=== PATIENT | female | born 1940 | race Caucasian/White ===

== ENCOUNTER → 2018-07-21 | Outpatient (CLI) | payer MEDICARE, OTHER ==
--- NOTE | 2018-07-28 14:52 | RAD ---
DATE: July 21, 2018 EXAM: DIGITAL SCREEN BILAT W/CAD HISTORY: Screening study. COMPARISON: 2015 and 2017 This study was interpreted with the benefit of Computerized Aided Detection (CAD). FINDINGS: Breast Density: FATTY The breast parenchyma is primarily fatty replaced. Breast parenchyma level density A.. There are no dominant suspicious masses, suspicious microcalcifications or evidence of architectural distortion. IMPRESSION: No mammographic indicators for malignancy. BI-RADS CATEGORY: 1 NEGATIVE RECOMMENDED FOLLOW-UP: 12M 12 MONTH FOLLOW-UP PQRS compliance statement: Patient information was entered into a reminder system with a target due date July 22, 2019 for the next mammogram. Mammography is a sensitive method for finding small breast cancers, but it does not detect them all and is not a substitute for careful clinical examination. A negative mammogram does not negate a clinically suspicious finding and should not result in delay in biopsying a clinically suspicious abnormality. "Our facility is accredited by the [employer] Mamm[employer]." The patient's breast density may affect the ability of mammography to detect breast cancer. There are 4 categories of breast density, A, B, C and D. Breast density A means that most of the breast tissue is replaced with adipose tissue and therefore is not dense. Breast density B means that the breast tissue is mildly dense and scattered. Breast density C means that the breast tissue is heterogeneously dense. Breast density D means that the breast tissue is very dense. Breast densities especially C and D may decrease the sensitivity of mammography to detect breast cancer. Therefore, the patient may benefit from 3-D breast mammography (3D breast tomography) as a part of their screening mammogram. Insurance may or may not pay for this additional imaging. The patient's breast density based on today's mammogram is category A.
== END | disposition home or self-care (01) ==
LOC: MAMMO 10:14
PROVIDERS: ATTEND Family Medicine
DX: Z12.31 Encounter for screening mammogram for malignant neoplasm of breast (principal)
CPT/HCPCS: 77067

== ENCOUNTER → 2019-08-02 | Outpatient (CLI) | payer MEDICARE, OTHER ==
--- NOTE | 2019-08-02 15:21 | RAD ---
DATE: 08/02/2019. EXAM: MAMMO ASHLEY SCREENING BILATERAL. HISTORY: Routine mammographic screening. COMPARISON: 07/21/2018. This study was interpreted with the benefit of Computerized Aided Detection (CAD). FINDINGS: Breast Density: FATTY The breast parenchyma is primarily fatty replaced. Breast parenchyma level density A.. A nodule superolaterally on the right has stable correlates with very levels of inclusion on prior studies. Small nodules elsewhere are stable. Coarse calcifications are benign. There are no suspicious masses, microcalcifications or architectural distortion. A pacemaker is noted on the left. BI-RADS CATEGORY: 2 BENIGN FINDING(S). RECOMMENDED FOLLOW-UP: 12M 12 MONTH FOLLOW-UP. PQRS compliance statement: Patient information was entered into a reminder system with a target due date 08/02/2020 for the next mammogram. Mammography is a sensitive method for finding small breast cancers, but it does not detect them all and is not a substitute for careful clinical examination. A negative mammogram does not negate a clinically suspicious finding and should not result in delay in biopsying a clinically suspicious abnormality. "Our facility is accredited by the [employer] Mammography [employer]."
== END | disposition home or self-care (01) ==
LOC: MAMMO 09:10
PROVIDERS: ATTEND Family Medicine
DX: Z12.31 Encounter for screening mammogram for malignant neoplasm of breast (principal); N63.10 Unspecified lump in the right breast, unspecified quadrant; N64.89 Other specified disorders of breast; Z95.0 Presence of cardiac pacemaker
CPT/HCPCS: 77063; 77067

== ENCOUNTER → 2020-08-16 | Outpatient (CLI) | payer MEDICARE, OTHER ==
--- NOTE | 2020-08-16 11:04 | RAD ---
EXAM: Bilateral digital screening mammogram with tomosynthesis. HISTORY: 79-year-old female presents for screening mammography. TECHNIQUE: Full-field digital craniocaudal and mediolateral oblique 2D and 3D tomosynthesis images of both breasts are obtained for evaluation. Computer aided detection was applied. COMPARISON: 08/02/2019 BREAST PARENCHYMAL DENSITY: Level B - Scattered fibroglandular densities. FINDINGS: There is no new suspicious mass, microcalcification or region of architectural distortion. There are stable areas of nodularity and asymmetry within both breasts. There is a cardiac pacemaker generator overlying the left chest. IMPRESSION: BI-RADS Category 2: Benign finding(s). RECOMMENDATION: Annual mammography is recommended. If your mammogram demonstrates that you have dense breast tissue, which could hide abnormalities, and if you have other risk factors for breast cancer that have been identified, you might benefit from supplemental screening tests that may be suggested by your ordering physician. Dense breast tissue, in and of itself, is a relatively common condition. This information is not provided to cause undue concern, but rather to raise your awareness and to promote discussion with your physician regarding the presence of other risk factors, in addition to dense breast tissue. A report of your mammography results will be sent to you and your physician. You should contact your physician if you have any questions or concerns regarding this report. Mammography is a sensitive method for finding small breast cancers, but it does not detect them all and is not a substitute for careful clinical examination. A negative mammogram does not negate a clinically suspicious finding and should not result in delay in biopsying a clinically suspicious abnormality. PQRS compliance statement - Patient information was entered into a reminder system with a target due date for the next mammogram. "Our facility is accredited by the [employer]amm[employer]." Electronically signed by: Anita Inman MD (08/16/2020 11:02 AM) [id number]
== END ==
LOC: MAMMO 10:07
PROVIDERS: ATTEND Family Medicine
DX: Z12.31 Encounter for screening mammogram for malignant neoplasm of breast (principal); N64.89 Other specified disorders of breast; Z95.0 Presence of cardiac pacemaker
CPT/HCPCS: 77063; 77067

== ENCOUNTER 2021-07-12 18:56 | Emergency (ER) | payer MEDICARE, OTHER ==
[~2021-07-12] VITALS: Ht 157.5 cm; Wt 72.0 kg
[2021-07-12 19:33] VITALS: BP 140/71
--- NOTE | 2021-07-12 19:51 | PHYS DOC ---
Past History Past Surgical History: Appendectomy, Cancer Surgery, Tonsillectomy, Other Additional Past Surgical Histo: colon resection, lung removal Adult General Chief Complaint Chief Complaint: LACERATION/AVULSION HPI HPI Patient is an 80-year-old female with a past medical history of Lindsay conti on Eliquis who presents to the emergency department with bleeding from the right l ower extremity. States she went to scratch the back of her calf, scratched too hard and it started bleeding. States that it was bleeding for about an hour so she decided to come to the emergency department. States that shortly after coming to the emergency department it stopped. Denies any headache, chest pain, shortness of breath, abdominal pain, nausea, vomiting. Denies any new or stop medications. Review of Systems Review of Systems Review of systems otherwise unremarkable except noted in HPI Allergies Allergies Allergies Coded Allergies Type Severity Reaction Last Updated Verified Nukfdhr-Tvh-Viw Reductase Inhibitor Allergy Intermediate 07/12/21 Yes Sulfa (Sulfonamide Antibiotics) Allergy Unknown 07/12/21 Yes Physical Exam Physical Exam Constitutional: Well developed, well nourished, no acute distress, non-toxic appearance. [] HENT: Normocephalic, atraumatic, Eyes: conjunctiva normal, no discharge. [] Cardiovascular:Heart rate regular rhythm, no murmur [] Lungs & Thorax: Bilateral breath sounds clear to auscultation [] Abdomen: soft, no tenderness, no masses, no pulsatile masses. [] Skin: Warm, dry, no erythema, no rash. [] Extremities: Patient has a tiny scratch on the back of right calf, bleeding controlled, scabbed over with no signs of infection Neurologic: Alert and oriented X 3, normal motor function, normal sensory function, no focal deficits noted. [] Psychologic: Affect normal, judgement normal, mood normal. [] Current Patient Data Vital Signs Vital Signs Date Time Temp Pulse Resp B/P (MAP) Pulse Ox O2 Delivery O2 Flow Rate FiO2 07/12/21 19:33 98.9 64 16 140/71 (94) 96 Room Air EKG EKG [] Radiology/Procedures Radiology/Procedures [] Heart Score C/O Chest Pain: No Risk Factors: Risk Factors: DM, Current or recent (<one month) smoker, HTN, HLP, family history of CAD, obesity. Risk Scores: Risk Factors: DM, Current or recent (<one month) smoker, HTN, HLP, family history of CAD, obesity. Course & Med Decision Making Course & Med Decision Making Patient is an 80-year-old female who presents with scratch to the back of the calf that was bleeding and she is on Eliquis Vital signs not concerning. Physical exam noted above. Bleeding controlled here in the ED and has not bled here in the ED. Placed pressure bandage. Discussed controlling small bleeds at home. Advised to call primary care in the morning to update on ED visit. Gave return precautions to the ED. Patient grateful, verbalized understanding and agreed with plan of discharge. Dragon Disclaimer Dragon Disclaimer This electronic medical record was generated, in whole or in part, using a voice recognition dictation system. Departure Departure: Impression: Primary Impression: Laceration Disposition: 01 HOME / SELF CARE / HOMELESS Condition: GOOD Referrals: AZAR GOLD (PCP) Patient Instructions: Wound Care, [id number] Additional Instructions: Thank you for coming into the emergency department tonight and allowing us to take care of you. Please read the attached information to go over things we discussed. Please manage your wound as we discussed with bandages and pressure as needed. Please call your primary care physician in the morning to update on ED visit and set up a follow-up as needed. Please come back to the ED with new or concerning symptoms as discussed. PAOLO TAYLOR MD Jul 12, 2021 19:51
== END 2021-07-12 20:00 | disposition home or self-care (01) ==
LOC: ER 18:56
DX: S81.811A Laceration without foreign body, right lower leg, initial encounter (principal); Z88.2 Allergy status to sulfonamides; W50.4XXA Accidental scratch by another person, initial encounter; Y93.89 Activity, other specified; Y92.89 Other specified places as the place of occurrence of the external cause; Y99.8 Other external cause status
CPT/HCPCS: 99281; 99282

== ENCOUNTER → 2021-08-17 | Outpatient (CLI) | payer MEDICARE, OTHER ==
--- NOTE | 2021-08-17 14:17 | RAD ---
INDICATION : Routine Screening. COMPARISON: Priors including July 2019 TECHNIQUE: Standard mammogram screening views of the bilateral breasts were obtained with 3D tomosynt hesis. CAD was utilized. FINDINGS: The breasts are scattered density. There is repeat demonstration of benign-appearing calcification a s well as left-sided pacemaker. No definite new suspicious mass. IMPRESSION: BI-RADS Category 2: Benign findings. Recommend repeat screening exam in one year. The patient was placed into the recall system with a suggested recall date for follow up imaging. Mammography is the most sensitive method for finding small breast cancers, but it does not detect the m all and is not a substitute for careful clinical examination. A negative mammogram does not negate a clinically suspicious finding and should not result in delay in biopsying a clinically suspicious abnormality. Electronically signed by: Ryan Villasenor MD (08/17/2021 2:15 PM) [id number]
== END ==
LOC: MAMMO 10:01
PROVIDERS: ATTEND Family Medicine
DX: Z12.31 Encounter for screening mammogram for malignant neoplasm of breast (principal)
CPT/HCPCS: 77063; 77067

== ENCOUNTER → 2021-09-05 | Outpatient (CLI) | payer MEDICARE, OTHER ==
[2021-09-05 09:34] LABS: BASO % 0 % (0-3); EOS # 0.2 x10^3/uL (0.0-0.7); EOS % 2 % (0-3); HEMATOCRIT 47.3 % (36.0-47.0); HEMOGLOBIN 15.6 g/dL (12.0-15.5); LYMPH # 2.5 x10^3/uL (1.0-4.8); LYMPH % 22 % (24-48); MEAN CORPUSCULAR HEMOGLOBIN 30 pg (25-35); MEAN CORPUSCULAR HGB CONC 33 g/dL (31-37); MEAN CORPUSCULAR VOLUME 92 fL (79-100); MONO % 9 % (0-9); NEUT # 7.4 x10^3uL (1.8-7.7); NEUT % 67 % (31-73); PLATELET COUNT 436 x10^3/uL (140-400); RED BLOOD COUNT 5.16 x10^6/uL (3.50-5.40); RED CELL DISTRIBUTION WIDTH 14.9 % (11.5-14.5); WHITE BLOOD COUNT 11.1 x10^3/uL (4.0-11.0)
[2021-09-05 09:40] LABS: ALBUMIN 3.2 g/dL (3.4-5.0); ALBUMIN/GLOBULIN RATIO 0.8 (1.0-1.7); CALCIUM 8.7 mg/dL (8.5-10.1); CREATININE 1.1 mg/dL (0.6-1.0); GFR 47.7; POTASSIUM 3.7 mmol/L (3.5-5.1); TOTAL BILIRUBIN 0.5 mg/dL (0.2-1.0); TOTAL PROTEIN 7.1 g/dL (6.4-8.2)
[2021-09-05] MEDS: IOHEXOL 300 MG/ML 75 ML VIAL. IV ONE (09:49)
--- NOTE | 2021-09-05 10:10 | RAD ---
PQRS Compliance Statement: One or more of the following individualized dose reduction techniques were utilized for this examinat ion: 1. Automated exposure control 2. Adjustment of the mA and/or kV according to patient size 3. Use of iterative reconstruction technique CT abdomen/pelvis with contrast 09/05/2021 9:55 AM INDICATION: Hernia, right upper quadrant pain COMPARISON: None available TECHNIQUE: Multiple axial CT images of the abdomen and pelvis were obtained after the intravenous adm inistration of nonionic contrast. Coronal and sagittal reformats are provided. FINDINGS: Lung bases are clear. Heart size is within normal limits. Cardiac pacer wires partially pro filed. Mild hypoattenuation of the hepatic parenchyma may reflect hepatic steatosis. Spleen appears a bsent. Mild atrophy of the pancreas. No adjacent inflammatory changes. Gallbladder is present without adjacent inflammation. Adrenal glands are normal. The abdominal aorta is normal in course and caliber. There are no pathologically enlarged lymph nodes in the abdomen and pelvis. There is no abdominal free fluid. There is no free intraperitoneal air. M ild fat-containing bilateral inguinal hernias. Moderate diverticulosis of the sigmoid colon. No bowel obstruction or inflammation. Appendix is not d efinitively visualized. No suspicious pelvic mass. Ventral abdominal hernia repair post surgical hernandez ges are present. There is a small left lateral ventral abdominal hernia containing fat measuring 10 m m (series 2, image 36). There are simple bilateral renal cortical cysts. Thin rim of calcification identified involving the i nferior pole left renal cyst measuring 4.2 cm, Bosniak 2. No hydronephrosis. No calculi within the ur eters or urinary bladder. Urinary bladder is within normal limits given degree of distention. No susp icious osseous abnormality is identified. IMPRESSION: No acute abnormality is identified within the abdomen and pelvis as described in detail above. Electronically signed by: Esther Maier MD (09/05/2021 10:08 AM) [id number]
== END ==
LOC: CT 08:44
PROVIDERS: ATTEND Family Medicine
DX: N28.1 Cyst of kidney, acquired (principal); K40.90 Unilateral inguinal hernia, without obstruction or gangrene, not specified as recurrent; K86.89 Other specified diseases of pancreas; K43.9 Ventral hernia without obstruction or gangrene; K57.30 Diverticulosis of large intestine without perforation or abscess without bleeding
CPT/HCPCS: 36415; 74177; 80053; 83690; 85025; Q9967